=== PATIENT | male | born 1955 | race Caucasian/White ===

== ENCOUNTER 2016-09-07 17:24 | Observation (INO) | payer MEDICAID, OTHER ==
[2016-09-07 17:25] VITALS: BMI 25.1
[2016-09-07] MEDS ORDERED: Naloxone 0.4 mg/ml Inj (Adult) ONE (17:37)
[2016-09-07] MEDS ORDERED: Naloxone 0.4 mg/ml Inj (Adult) IVP ONE (17:52)
[2016-09-07] MEDS ORDERED: Sodium Chloride 0.9% 1,000 ML IV ONE (17:52)
[2016-09-07 18:07] LABS: BASO % 0.5 % (0.0-2.0); EOS # 0.2 K/uL (0.0-0.7); HEMATOCRIT 39.4 % (35.0-51.0); LYMPH % 40.7 % (20.0-40.0); MEAN CELL VOLUME 92.9 fL (80.0-94.0); MEAN CORPUSCULAR HGB CONC 32.3 g/dL (33.0-37.0); MEAN PLATELET VOLUME 8.9 fL (7.2-11.7); MONO # 0.5 K/uL (0.0-0.8); MONO % 5.3 % (0.0-10.0); RED CELL DISTRIBUTION WIDTH 14.4 % (11.5-14.5)
[2016-09-07 18:09] LABS: WHITE BLOOD COUNT 9.8 K/uL (4.8-10.8)
[2016-09-07] MEDS ORDERED: Sodium Chloride 0.9% 1,000 ML ONE (18:12)
[2016-09-07 18:20] LABS: CHLORIDE 101 mmol/L (98-107)
[2016-09-07 18:21] LABS: POTASSIUM 3.3 mmol/L (3.6-5.2); SODIUM 140 mmol/L (132-148)
[2016-09-07 18:23] LABS: ALB/GLOB RATIO 1.7 (1.0-2.1); ALKALINE PHOSPHATASE 60 U/L (38-126); AST/SGOT 29 U/L (17-59); BILIRUBIN,TOTAL 0.5 mg/dL (0.2-1.3); BLOOD UREA NITROGEN 14 mg/dL (9-20); CARBON DIOXIDE 21 mmol/L (22-30); GFR AFRICAN-AMERICAN > 60; TOTAL PROTEIN 7.7 g/dL (6.3-8.3)
[2016-09-07 18:24] LABS: ALCOHOL SERUM 186 mg/dl (0-10); ALT/SGPT 23 U/L (21-72); CALCIUM 8.1 mg/dl (8.6-10.4); GLUCOSE,RANDOM 130 mg/dL (75-110); MAGNESIUM 2.3 mg/dL (1.6-2.3)
[2016-09-07 20:06] LABS: RBC URINE 1 /hpf (0-3); URINE BILIRUBIN NEGATIVE (NEGATIVE); URINE BLOOD NEGATIVE (NEGATIVE); URINE COLOR Yellow (YELLOW); URINE GLUCOSE (UA) NORMAL (Normal); URINE KETONE NEGATIVE (NEGATIVE); URINE LEUKOCYTE ESTERASE NEG Leu/uL (Negative); URINE PROTEIN NEGATIVE (NEGATIVE); URINE UROBILINOGEN NORMAL mg/dL (0.2-1.0); WBC URINE 3 /hpf (0-5)
--- NOTE | 2016-09-07 20:38 | C.PDOC ---
Time Seen by Provider: 09/07/16 17:43 Chief Complaint (Nursing): Substance Abuse History Per: Patient, EMS History/Exam Limitations: intoxication Onset/Duration Of Symptoms: Unknown (today) Current Symptoms Are (Timing): Still Present Suicide/Self Injury Attempted (Context): None Modifying Factor(s): Alcohol, Marijuana, Narcotics (?), Cocaine Severity: Severe Associated Symptoms: denies: Suicidal Thoughts, Suicidal Plan Additional History Per: Prior Records Past Medical History Reviewed: Historical Data, Nursing Documentation, Vital Signs Vital Signs: Last Vital Signs Temp 97.5 F L 09/07/16 18:04 Pulse 67 09/07/16 22:54 Resp 15 09/07/16 22:54 BP 122/68 09/07/16 22:54 Pulse Ox 95 09/07/16 22:54 - Medical History PMH: Hypercholesterolemia - [facility] Procedures CLOSURE SKIN & SUBCUTANEOUS NEC (01/01/13) COLONOSCOPY (09/29/13) TETANUS TOXOID ADMINIST (01/01/13) VACCINATION NEC (01/14/13) Family History: States: Unknown Family Hx - Social History Hx Tobacco Use: No Hx Alcohol Use: Yes Hx Substance Use: Yes - Immunization History Hx Tetanus Toxoid Vaccination: No Hx Influenza Vaccination: No Hx Pneumococcal Vaccination: No Review Of Systems Review Of Systems: ROS cannot be obtained secondary to pt's inabilty to answer questions. Physical Exam - Physical Exam Appears: Other (Intoxicated. Sleeping, but arrousable to painful stimuli) Skin: Warm, Diaphoretic Head: Atraumatic Eye(s): bilateral: PERRL (but small) Neck: Normal ROM, No Midline Cervical Tenderness, No Step Off Deformity, Supple Chest: Symmetrical, No Deformity Cardiovascular: Rhythm Regular Respiratory: Normal Breath Sounds, No Accessory Muscle Use Gastrointestinal/Abdominal: Soft Extremity: Normal ROM, No Deformity Neurological/Psych: Eyes Open With Command, Other (Moving all extremities) Pain Response: Withdraws With Pain Gait: Unable To Assess ED Course And Treatment - Laboratory Results Result Diagrams: 09/07/16 18:03 09/07/16 18:03 O2 Sat by Pulse Oximetry: 97 Pulse Ox Interpretation: Normal Reassessment Condition: Improved Progress - Interventions Interventions:: Observation, Intravenous fluid - Medications Administered Intravenous: Other (Narcan) - Data Reviewed Data Reviewed: Lab, Old records - Patient Status Patient status: Mostly improved - Continuity of Care Discussed patient case with:: Patient, ED Nurse - Patient Plan Patient Plan: Discharge, F/U with PCP ED OBSERVATION Discharge: Yes Date of observation admission: 09/07/16 Time of observation admission: 18:00 - Observation admission statement Patient is being placed in observation because:: Intoxication. - Goals of Observation Goals of observation are:: Sobriety. - Progress Note Progress Note: 09/08/16 00:25 Pt is now AAOx3 even after the Narcan has already worn off. He wants to leave right now. Disposition Counseled Patient/Family Regarding: Studies Performed, Diagnosis, Need For Followup - Disposition Disposition: HOME/ ROUTINE Disposition Time: 00:26 Condition: IMPROVED - Clinical Impression Clinical Impression: Drug abuse, Alcoholic intoxication
[2016-09-08 01:09] VITALS: BP 113/77; PULSE 86; RESP 16; TEMP 97.9; O2SAT 96
== END 2016-09-08 00:26 | disposition home or self-care (01) ==
LOC: C.ER 17:24 → C.9OBSV 20:38
PROVIDERS: ADMIT Emergency Medicine; ATTEND Emergency Medicine
DX: F10.229 Alcohol dependence with intoxication, unspecified (principal); F12.10 Cannabis abuse, uncomplicated; F11.10 Opioid abuse, uncomplicated
CPT/HCPCS: 80053; 80320; 80324; 80345; 80346; 80349; 80353; 80358; 80361; 81001; 82948; 83735; 83992; 85025; 96361; 96374; 99285; G0378; J2310